=== PATIENT | male | born 2005 | race Caucasian/White ===

== ENCOUNTER 2024-03-04 08:09 | Emergency (ER) | payer MEDICAID, SELFPAY ==
[2024-03-04 08:20] VITALS: BP 144/76; PULSE 80; RESP 16; TEMP 36.9; O2SAT 97
--- NOTE | 2024-03-04 08:37 | W.ED.GENAD ---
Discharge Plan Disposition Patient Disposition: Home Condition: Good Discharge Details Clinical Impression: Thumb injury ED Provider: Clemencia Orona Home Meds and New Rx's Prescriptions: No Action No Known Home Meds Discharge Instructions Additional Instructions: I encourage you to follow-up with orthopedics in the next 2 to 3 weeks for reassessment. Please wear the thumb spica brace at all times, taking it off only to wash your hands or take a shower. I encourage you to apply ice and use Tylenol 650 mg every 6 hours as needed for discomfort. Referrals: [facility] [Provider Group] HPI General Date/Time Provider Initiated Documentation: 03/04/24 08:32. HPI Narrative: Jonathon is a 18-year-old male who presents to the emergency department today for evaluation of right thumb pain/swelling. He reports yesterday he was moving rocks when the pile shifted and rocks landed on his thumb. He has all over swelling and pain, no point tenderness. He does have sensation intact distally, is able to wiggle thumb slightly. No previous injury to this thumb. He is right-handed. He applied ice last night, has not used any pain medications. Otherwise in good health. He does not have a PCP. Physical exam remarkable for ecchymosis and swelling all over right thumb from the DIP down to the thenar eminence. Full flexion and extension possible, though it does cause him pain. No snuffbox tenderness. No obvious deformity, overlying lacerations/abrasions, or nailbed injury. No injury to fingers 2-5, metacarpals, or wrist. D/dx includes but is not limited to: fracture, sprain, contusion, other soft tissue injury. No red flags concerning for tendon injury or neurovascular compromise. I independently interpreted the following tests: R hand xray, concern for avulsion fracture at the proximal phalanx. Patient does have some pain with abduction of the thumb at the site of the noted disruption. Emergency department Jonathon was offered Tylenol or ibuprofen for discomfort, which he declined. Thumb spica Velcro splint applied for immobilization/comfort. Recommend close follow-up with orthopedics for further evaluation and management of likely ligamentous injury. Reviewed discharge instructions with patient. He is agreeable with plan of care. Related Data Home Medications ?Medication ?Instructions ?Recorded ?Confirmed Unknown [No Known Home Meds] 03/04/24 03/04/24 Allergies Allergy/AdvReac Type Severity Reaction Status Date / Time No Known Allergies Allergy Unverified 03/04/24 08:23 General Stated Complaint: Orthopedic TYSON: 4 Review of Systems Narrative: See HPI Exam Const General: cooperative, healthy appearing, comfortable and no acute distress Nutritional Appearance: average body habitus Orientation: alert and oriented x3 Skin General skin exam: no rashes or lesions noted Wounds: no wounds Extrem Right upper extremity: full ROM, wrist Details: normal to inspection; no tenderness and hand Details: normal capillary refill, neuromotor exam normal, neurosensory exam normal, normal ROM of fingers, swelling Location: of the thumb and ecchymosis Location: of the thumb; no unusual warmth, no abrasions, no lacerations and no puncture wound Left upper extremity: normal to inspection Course Vital Signs Vital signs: Vital Signs Temperature 36.9 C 03/04/24 08:20 Pulse 80 03/04/24 08:20 Respiratory Rate 16 03/04/24 08:20 Blood Pressure 144/76 H 03/04/24 08:20 Pulse Oximetry 97 03/04/24 08:20 Temperature 36.9 C 03/04/24 08:20 Temperature Source Temporal Artery Scan 03/04/24 08:20 Pulse 80 03/04/24 08:20 Respiratory Rate 16 03/04/24 08:20 Respiratory Effort Normal 03/04/24 08:22 Blood Pressure 144/76 H 03/04/24 08:20 Blood Pressure Position Sitting 03/04/24 08:20 Pulse Oximetry 97 03/04/24 08:20 Oxygen Delivery Method Room Air 03/04/24 08:20 Oxygen Flow Rate 0 03/04/24 08:20 Pain Level 5 03/04/24 08:24 Medical Decision Making Imaging Data Radiologic Study: Radiologist's impression: Exam(s) XR HAND RT LIMITED EXAM: XR HAND RT LIMITED CLINICAL HISTORY: R thumb pain (all over, including thenar eminence). TECHNIQUE: 2D digital imaging was performed. COMPARISON: No exams were available for comparison FINDINGS: 3 views There is a small 1 millimeter density soft tissues adjacent to the lateral aspect of the head the proximal phalanx of the thumb. This may represent foreign body or small avulsion injury. No other findings in the hand. IMPRESSION: Thumb finding as above. Correlation with site of tenderness is recommended Quality:SDOH Health Related Social Needs: No Data to Display PFSH All Active Problems (Updated 03/04/24 @ 09:38 by Clemencia Clark) Thumb injury (Acute) Social History Smoking/Tobacco Use Status: Never Smoking risk assessment performed?: Yes Alcohol Intake: never Drug use: Never Substance use type: does not use
--- NOTE | 2024-03-04 08:54 | DI.RAD_ITS ---
Exam(s) XR HAND RT LIMITED EXAM: XR HAND RT LIMITED CLINICAL HISTORY: R thumb pain (all over, including thenar eminence). TECHNIQUE: 2D digital imaging was performed. COMPARISON: No exams were available for comparison FINDINGS: 3 views There is a small 1 millimeter density soft tissues adjacent to the lateral aspect of the head the pro ximal phalanx of the thumb. This may represent foreign body or small avulsion injury. No other find ings in the hand. IMPRESSION: Thumb finding as above. Correlation with site of tenderness is recommended DATA REPOSITORY: RADIATION DOSE DELIVERED:
== END 2024-03-04 09:50 | disposition home or self-care (01) ==
LOC: ER 10:02
PROVIDERS: Emergency Provider Nurse Practitioner Family
DX: S69.81XA Other specified injuries of right wrist, hand and finger(s), initial encounter (principal); W20.8XXA Other cause of strike by thrown, projected or falling object, initial encounter; Y93.H2 Activity, gardening and landscaping
CPT/HCPCS: 99283; 73120